=== PATIENT | male | born 1985 | race Caucasian/White ===

== ENCOUNTER 2017-11-05 11:27 | Emergency (ER) | payer OTHER ==
[2017-11-05] MEDS ORDERED: PROPARACAINE 0.5% OPHTH DROPS 15 ML BTL ONE (11:52)
[2017-11-05] MEDS ORDERED: HYDROcodone/APAP 5-325MG 1 EACH TAB PO STA (12:54)
--- NOTE | 2017-11-05 12:58 | ED ---
ENT HPI - General Chief complaint: ENT Stated complaint: rt eye problem Time Seen by Provider: 11/05/17 11:45 Source: patient Mode of arrival: ambulatory Limitations: no limitations - History of Present Illness Initial comments: 32-year-old male presented for evaluation of right eye pain and tearing. He states that the pain started yesterday morning when he woke up and has continued to bother him. There is light sensitivity and conjunctival injection. He states the day before that he had been working outside a lot and states that he was cutting a lot of would and that part of it may have come up and hit him in the eye. He does have foreign-body sensation however has not seen any foreign bodies in the eye. States it is difficult told eye open. - Related Data Previous Rx's Medication Instructions Recorded Gentamicin 0.3% Ophth Soln 1 - 2 drops RIGHT EYE Q4HR 5 Days 11/05/17 [Garamycin 0.3% Ophth Soln] #1 bottle HYDROcodone/APAP 5-325MG [[place] 1 - 2 tab PO Q6HR PRN #11 tab 11/05/17 5-325] Allergies Allergy/AdvReac Type Severity Reaction Status Date / Time Fish Containing Products AdvReac Severe Nausea & Verified 11/05/17 12:14 [Fish] Vomiting & Diarrhea Review of Systems ROS Statement: Those systems with pertinent positive or pertinent negative responses have been documented in the HPI. ROS Other: All systems not noted in ROS Statement are negative. Constitutional: Denies: fever, chills Eyes: Reports: eye pain, eye discharge (Tearing), vision change (Due to tearing and inability to wear contacts) ENT: Denies: ear pain, throat pain Respiratory: Denies: cough, dyspnea Cardiovascular: Denies: chest pain, palpitations Gastrointestinal: Denies: abdominal pain, nausea, vomiting Skin: Denies: rash, lesions Neurological: Denies: headache, weakness Past Medical History Past Medical History: No Reported History History of Any Multi-Drug Resistant Organisms: None Reported Additional Past Surgical History / Comment(s): facial reconstruction, variocele Past Psychological History: No Psychological Hx Reported Smoking Status: Current every day smoker Past Alcohol Use History: None Reported Past Drug Use History: None Reported General Exam Limitations: no limitations General appearance: alert, in distress (mild) Head exam: Present: atraumatic, normocephalic Eye exam: Present: normal appearance, PERRL, EOMI, conjunctival injection. Absent: nystagmus, periorbital swelling, periorbital tenderness Pupils: Present: normal accommodation, other (slit lamp exam shows corneal abrasion). Absent: irregular, unequal, miosis, mydriatic Respiratory exam: Present: normal lung sounds bilaterally. Absent: respiratory distress Cardiovascular Exam: Present: regular rate, normal rhythm Rectal exam: Present: deferred Course Vital Signs 11/05/17 11/05/17 11:31 13:12 Temperature 97.9 F 97.6 F Pulse Rate 91 66 Respiratory 16 18 Rate Blood Pressure 119/74 122/67 O2 Sat by Pulse 97 99 Oximetry Medical Decision Making - Medical Decision Making 32-year-old male presented for evaluation of right eye pain. Potential for woodchips to have hit him in the eye 2 days ago. On physical examination he does have tearing to the right eye and it is injected. Eyelids were flipped and showed no foreign bodies. Eye was stained with fluorescein and showed a corneal abrasion. We'll provide gentamycin drops and pain control. Advised to follow-up with primary care physician and given referral for emergency vehicle dispatcher. Patient states that he had called an emergency vehicle dispatcher and that he could be seen tomorrow however he wasn't able to weight which is why he came to the ED today. He is further given return instructions. The patient acknowledged an understanding of all information provided and agreed with this plan of care. Disposition Clinical Impression: Corneal abrasion Disposition: HOME SELF-CARE Condition: Stable Instructions: Corneal Abrasion (ED) Additional Instructions: Please use medication as discussed. Please follow up with family doctor if symptoms have not improved over the next two days. Please return to the emergency room if your symptoms increase or worsen or for any other concerns. Furthermore you'll be given a referral for an emergency vehicle dispatcher within included phone number and office address. Please make an appointment for either tomorrow or Thursday for further follow-up however if her symptoms worsen or persist return to the ED here for further treatment and evaluation. Prescriptions: Gentamicin 0.3% Ophth Soln [Garamycin 0.3% Ophth Soln] 1 - 2 drops RIGHT EYE Q4HR 5 Days #1 bottle HYDROcodone/APAP 5-325MG [[place] 5-325] 1 - 2 tab PO Q6HR PRN #11 tab PRN Reason: Analgesia Is patient prescribed a controlled substance at d/c from ED?: Yes When asked, does pt state using other controlled substances?: No If prescribed controlled substance>3 days was MAPS reviewed?: Prescribed <3 Days If opioid is for acute pain is fill amount 7 days or less?: Yes If Rx opioid, was Start Talking consent form obtained?: No Referrals: None,Stated [Primary Care Provider] - 1-2 days Hossein Santana MD [STAFF PHYSICIAN] - 1-2 days Juan Jose Crow MD [STAFF PHYSICIAN] - 1-2 days Time of Disposition: 12:58
[2017-11-05 13:13] VITALS: BP 122/67; PULSE 66; RESP 18; TEMP 97.6
== END 2017-11-05 13:12 | disposition home or self-care (01) ==
LOC: EC 11:27
DX: S05.01XA Injury of conjunctiva and corneal abrasion without foreign body, right eye, initial encounter (principal); F17.200 Nicotine dependence, unspecified, uncomplicated; X58.XXXA Exposure to other specified factors, initial encounter; Y93.89 Activity, other specified
CPT/HCPCS: 99283

== ENCOUNTER 2019-08-16 19:35 | Emergency (ER) | payer OTHER ==
[2019-08-16 20:30] VITALS: BP 147/80; PULSE 75; RESP 18; TEMP 98
[2019-08-16] MEDS ORDERED: PENICILLIN V POTASSIUM 250 MG TAB PO STA (20:57)
--- NOTE | 2019-08-16 20:59 | ED ---
ENT HPI - General Chief complaint: Dental/Oral Stated complaint: Oral Pain Time Seen by Provider: 08/16/19 20:38 Source: patient Mode of arrival: ambulatory Limitations: no limitations - History of Present Illness Initial comments: Patient is a 34-year-old male presenting to the emergency Department with complaints of right-sided dental pain for 2 days. Patient believes he has dental abscess. He states he's had one in the past and this feels similar. He states he has been taking aspirin for pain as well as using topical Orajel which has been working. He states he has not been to a dentist in a long time. He denies any fever, chills, nausea, vomiting. He has no other complaints at this time. Upon arrival to the ER his vitals are stable. - Related Data Previous Rx's Medication Instructions Recorded Gentamicin 0.3% Ophth Soln 1 - 2 drops RIGHT EYE Q4HR 5 Days 11/05/17 [Garamycin 0.3% Ophth Soln] #1 bottle HYDROcodone/APAP 5-325MG [[place] 1 - 2 tab PO Q6HR PRN #11 tab 11/05/17 5-325] Penicillin V Potassium [Pen Vee K] 500 mg PO QID 10 Days #40 tablet 08/16/19 Allergies Allergy/AdvReac Type Severity Reaction Status Date / Time Fish Containing Products AdvReac Severe Nausea & Verified 08/16/19 20:30 [Fish] Vomiting & Diarrhea Review of Systems ROS Statement: Those systems with pertinent positive or pertinent negative responses have been documented in the HPI. ROS Other: All systems not noted in ROS Statement are negative. Past Medical History Past Medical History: No Reported History History of Any Multi-Drug Resistant Organisms: None Reported Additional Past Surgical History / Comment(s): facial reconstruction, variocele Past Psychological History: No Psychological Hx Reported Smoking Status: Current every day smoker Past Alcohol Use History: None Reported Past Drug Use History: None Reported General Exam - General Exam Comments Initial Comments: GENERAL: Well-appearing, well-nourished and in no acute distress. HEAD: Atraumatic, normocephalic. EYES: Pupils equal round and reactive to light, extraocular movements intact, sclera anicteric, conjunctiva are normal. ENT: TMs normal, nares patent, oropharynx clear without exudates. Moist mucous membranes. Multiple dental caries noted, erythema and pain noted on the lower right gumline. No abscess seen to drain. No facial swelling. NECK: Normal range of motion, supple without lymphadenopathy or JVD. LUNGS: Breath sounds clear to auscultation bilaterally and equal. No wheezes rales or rhonchi. HEART: Regular rate and rhythm without murmurs, rubs or gallops. ABDOMEN: Soft, nontender, normoactive bowel sounds. No guarding, no rebound. No masses appreciated. : Deferred EXTREMITIES: Normal range of motion, no pitting or edema. No clubbing or cyanosis. NEUROLOGICAL: Normal speech, normal gait. PSYCH: Normal mood, normal affect. SKIN: Warm, Dry, normal turgor, no rashes or lesions noted. Limitations: no limitations Course Vital Signs 08/16/19 20:27 Temperature 98.0 F Pulse Rate 75 Respiratory 18 Rate Blood Pressure 147/80 O2 Sat by Pulse 98 Oximetry Medical Decision Making - Medical Decision Making Patient is a 34-year-old male presenting with right-sided dental pain 2 days. Vital signs are stable. No signs of infection. There is no abscess seemed to drain. Patient will be started on penicillin for possible dental abscess. He is to follow-up with dentist CONNOR. Patient states he's been controlling pain with Motrin as well as Orajel. He will continue with this. He is stable for discharge at this time. Return parameters were discussed with the patient and he verbalized understanding. Case discussed with Dr. Lemons. Disposition Clinical Impression: Dental caries, Dental abscess Disposition: HOME SELF-CARE Condition: Stable Instructions (If sedation given, give patient instructions): Dental Abscess (ED) Additional Instructions: Please return to the Emergency Department if symptoms worsen or any other concerns. Take antibiotic as prescribed. Follow-up with dentist CONNOR. Continue with Motrin for pain relief. Prescriptions: Penicillin V Potassium [Pen Vee K] 500 mg PO QID 10 Days #40 tablet Is patient prescribed a controlled substance at d/c from ED?: No Referrals: None,Stated [Primary Care Provider] - 1-2 days
== END 2019-08-16 21:15 | disposition home or self-care (01) ==
LOC: EC 19:35
DX: K04.7 Periapical abscess without sinus (principal); K02.9 Dental caries, unspecified; F17.200 Nicotine dependence, unspecified, uncomplicated; Z91.013 Allergy to seafood
CPT/HCPCS: 99282